=== PATIENT | female | born 1950 | race Two or more races ===

== ENCOUNTER → 2016-09-21 | Outpatient (CLI) | payer MEDICARE ==
[~2016-09-21] MED LIST: CEFD300C2 PO
[2016-09-21 09:27] LABS: Basophils # (auto) 0 uL; Basophils % (auto) 0.7 % (0.0-2.0); Eosinophils # (auto) 0.1 uL; Eosinophils % (auto) 2.4 % (0.0-7.0); Hematocrit 47.3 % (36.0-46.0); Hemoglobin 15.5 g/dL (12.2-16.2); Lymphocytes # (auto) 1.8 uL; Lymphocytes % (auto) 33.1 % (10.0-50.0); Mean Corpuscular Hgb Conc. 32.7 g/dL (32.0-36.0); Mean Corpuscular Volume 85.5 fL (80.0-100.0); Mean Platelet Volume 8.9 fL (7.4-10.4); Monocytes # (auto) 0.3 uL; Monocytes % (auto) 4.9 % (0.0-12.0); Neutrophils # (auto) 3.3 uL; Neutrophils % (auto) 58.9 % (37.0-80.0); Platelet Count (auto) 297 10^3/uL (140-450); Red Cell Distribution Width 14.9 % (11.6-16.0); White Blood Cell 5.6 10^3/uL (4.4-10.8)
[2016-09-21 09:30] LABS: Urine Bilirubin Negative (Negative); Urine Blood Negative /uL (Negative); Urine Color Yellow (Yellow); Urine Glucose Normal (Normal); Urine Ketone Negative (Negative); Urine Mucus FEW (None Seen); Urine Nitrite Negative (Negative); Urine RBC <1 /hpf (0 - 4); Urine Squamous Epithelial Cell FEW /hpf (<5); Urine Urobilinogen Normal (Negative); Urine pH 5.5 (5.0-8.0)
[2016-09-21 10:06] LABS: Albumin 3.8 g/dL (3.4-5.0); BUN/Creatinine Ratio 13.9; Bilirubin, Total 0.3 mg/dL (0.2-1.0); Calcium 9.1 mg/dL (8.5-10.1); Potassium 3.9 mmol/L (3.5-5.1); Total Protein 9.1 g/dL (6.4-8.2)
== END | disposition home or self-care (01) ==
LOC: LAB 08:00
PROVIDERS: ATTEND Internal Medicine
DX: Z00.00 Encounter for general adult medical examination without abnormal findings (principal); I10 Essential (primary) hypertension; E78.2 Mixed hyperlipidemia; E55.9 Vitamin D deficiency, unspecified; Z20.2 Contact with and (suspected) exposure to infections with a predominantly sexual mode of transmission
CPT/HCPCS: 36415; 80053; 80061; 81001; 82306; 84439; 84443; 85025; 86704; 86706; 86708; 86803; 87340

== ENCOUNTER → 2017-08-31 | Outpatient (CLI) | payer OTHER ==
[2017-08-31 09:40] LABS: Basophils # (auto) 0.1 uL; Eosinophils # (auto) 0.1 uL; Eosinophils % (auto) 1.6 % (0.0-7.0); Hematocrit 45.5 % (36.0-46.0); Hemoglobin 15.6 g/dL (12.2-16.2); Lymphocytes # (auto) 1.9 uL; Mean Corpuscular Hemoglobin 30.5 pg (28.0-32.0); Mean Corpuscular Hgb Conc. 34.2 g/dL (32.0-36.0); Mean Corpuscular Volume 89.2 fL (80.0-100.0); Monocytes # (auto) 0.3 uL; Neutrophils # (auto) 3.4 uL; Neutrophils % (auto) 58.4 % (37.0-80.0); Nucleated Red Blood Cells % 0.2 %; Platelet Count (auto) 293 10^3/uL (140-450); Red Cell Distribution Width 13.4 % (11.8-14.3); White Blood Cell 5.8 10^3/uL (4.4-10.8)
[2017-08-31 10:37] LABS: Albumin 4.1 g/dL (3.4-5.0); BUN/Creatinine Ratio 11.7; Bilirubin, Total 0.6 mg/dL (0.2-1.0); Potassium 3.6 mmol/L (3.5-5.1); Total Protein 8.7 g/dL (6.4-8.2)
== END | disposition home or self-care (01) ==
LOC: LAB 09:06
PROVIDERS: ATTEND Physician Assistant
DX: I10 Essential (primary) hypertension (principal); K76.0 Fatty (change of) liver, not elsewhere classified; E78.5 Hyperlipidemia, unspecified; R53.83 Other fatigue; R79.89 Other specified abnormal findings of blood chemistry; R55 Syncope and collapse; Z83.3 Family history of diabetes mellitus
CPT/HCPCS: 36415; 80053; 80061; 83036; 84443; 85025

== ENCOUNTER 2019-01-22 08:10 | Day surgery (SDC) | payer OTHER ==
[2019-01-18 08:55] LABS: Basophils # (auto) 0.1 uL; Basophils % (auto) 1.3 % (0.0-2.0); Eosinophils # (auto) 0.1 uL; Eosinophils % (auto) 2.3 % (0.0-7.0); Hematocrit 47.2 % (36.0-46.0); Hemoglobin 15.7 g/dL (12.2-16.2); Lymphocytes # (auto) 1.8 uL; Lymphocytes % (auto) 31.4 % (10.0-50.0); Mean Corpuscular Hemoglobin 29.4 pg (28.0-32.0); Mean Corpuscular Hgb Conc. 33.2 g/dL (32.0-36.0); Mean Corpuscular Volume 88.6 fL (80.0-100.0); Monocytes # (auto) 0.4 uL; Monocytes % (auto) 7.7 % (0.0-12.0); Neutrophils # (auto) 3.3 uL; Neutrophils % (auto) 57.3 % (37.0-80.0); Nucleated Red Blood Cells % 0.1 %; Platelet Count (auto) 298 10^3/uL (140-450); Red Blood Cells 5.33 10^6/uL (4.0-5.20); Red Cell Distribution Width 13.4 % (11.8-14.3); White Blood Cell 5.8 10^3/uL (4.4-10.8)
[2019-01-18 09:18] LABS: INR 0.98 (0.9-1.15); Partial Thromboplastin Time 24.4 sec (23.64-32.05)
[~2019-01-22] VITALS: Ht 157.5 cm; Wt 70.3 kg
[2019-01-22] MEDS ORDERED: NALOXONE HCL 0.4 MG/ML VIAL ONE (08:15)
[2019-01-22] MEDS ORDERED: SODIUM CHLORIDE LOCK 10 ML ONE (08:15)
[2019-01-22] MEDS ORDERED: MIDAZOLAM HCL 5 MG/ML-1ML VIAL ONE (08:15)
[2019-01-22] MEDS ORDERED: FLUMAZENIL 0.1 MG/ML INJ 10ML MDV IV ONE (08:15)
[2019-01-22] MEDS ORDERED: fentaNYL CITRATE 100 MCG/2 ML VL ONE (08:16)
[2019-01-22] MEDS ORDERED: diphenhdrAMINE HCL 50 MG/1 ML VL ONE (08:16)
[2019-01-22 10:06] VITALS: BP 151/87
== END 2019-01-22 10:14 | disposition home or self-care (01) ==
LOC: GI 08:10
PROVIDERS: ATTEND Internal Medicine Gastroenterology
DX: Z12.11 Encounter for screening for malignant neoplasm of colon (principal); K63.5 Polyp of colon; K57.30 Diverticulosis of large intestine without perforation or abscess without bleeding; M19.90 Unspecified osteoarthritis, unspecified site; I10 Essential (primary) hypertension; G43.909 Migraine, unspecified, not intractable, without status migrainosus; J45.909 Unspecified asthma, uncomplicated; Z98.890 Other specified postprocedural states; Z80.9 Family history of malignant neoplasm, unspecified; Z80.6 Family history of leukemia; Z79.82 Long term (current) use of aspirin; Z79.899 Other long term (current) drug therapy
CPT/HCPCS: 36415; 45385; 85025; 85610; 85730; J1200; J2250; J3010; J7030; 99152; 99153

== ENCOUNTER → 2019-02-07 | Outpatient (CLI) | payer OTHER ==
[2019-02-07 09:51] LABS: Basophils # (auto) 0.1 uL; Basophils % (auto) 0.9 % (0.0-2.0); Eosinophils # (auto) 0.2 uL; Eosinophils % (auto) 2.8 % (0.0-7.0); Hematocrit 45.6 % (36.0-46.0); Hemoglobin 15.5 g/dL (12.2-16.2); Lymphocytes # (auto) 1.9 uL; Lymphocytes % (auto) 33.1 % (10.0-50.0); Mean Corpuscular Hemoglobin 30.3 pg (28.0-32.0); Mean Corpuscular Volume 89.3 fL (80.0-100.0); Monocytes # (auto) 0.4 uL; Neutrophils # (auto) 3.4 uL; Neutrophils % (auto) 57.2 % (37.0-80.0); Platelet Count (auto) 311 10^3/uL (140-450); Red Blood Cells 5.11 10^6/uL (4.0-5.20); Red Cell Distribution Width 13.4 % (11.8-14.3); White Blood Cell 5.9 10^3/uL (4.4-10.8)
[2019-02-07 10:07] LABS: Urine Bacteria NONE SEEN /hpf (None Seen); Urine Blood Negative /uL (Negative); Urine Mucus FEW (None Seen); Urine Specific Gravity 1.021 (1.001-1.035); Urine WBC 6 /hpf (0 - 5)
[2019-02-07 10:27] LABS: Calcium 9.5 mg/dL (8.5-10.1); Potassium 3.7 mmol/L (3.5-5.1)
[2019-02-07 10:33] LABS: BUN/Creatinine Ratio 13.2; Bilirubin, Total 0.7 mg/dL (0.2-1.0); Total Protein 8.7 g/dL (6.4-8.2)
== END | disposition home or self-care (01) ==
LOC: LAB 09:20
PROVIDERS: ATTEND Physician Assistant
DX: Z00.00 Encounter for general adult medical examination without abnormal findings (principal); E78.5 Hyperlipidemia, unspecified; I11.0 Hypertensive heart disease with heart failure; I50.32 Chronic diastolic (congestive) heart failure; R73.03 Prediabetes; R79.89 Other specified abnormal findings of blood chemistry
CPT/HCPCS: 36415; 80053; 80061; 81001; 83036; 85025

== ENCOUNTER → 2019-06-22 | Outpatient (CLI) | payer OTHER | END | disposition home or self-care (01) | LOC: XYW 08:47 | PROVIDERS: ATTEND Internal Medicine | DX: I51.7 Cardiomegaly (principal); I51.89 Other ill-defined heart diseases | CPT/HCPCS: 93306 ==

== ENCOUNTER → 2019-06-22 | Outpatient (CLI) | payer OTHER ==
[2019-06-22 10:50] LABS: Potassium 3.9 mmol/L (3.5-5.1)
[2019-06-22 10:59] LABS: BUN/Creatinine Ratio 12.1; Calcium 8.9 mg/dL (8.5-10.1)
== END | disposition home or self-care (01) ==
LOC: LAB 08:33
PROVIDERS: ATTEND Internal Medicine
DX: I11.0 Hypertensive heart disease with heart failure (principal); I50.9 Heart failure, unspecified; I51.89 Other ill-defined heart diseases
CPT/HCPCS: 36415; 80048; 83880

== ENCOUNTER 2019-11-21 22:55 | Emergency (ER) | payer OTHER ==
[~2019-11-21] VITALS: Ht 157.5 cm; Wt 71.7 kg
[2019-11-21 23:49] LABS: Basophils # (auto) 0.1 10 ^3/uL (0-0.2); Basophils % (auto) 1.2 % (0.0-2.0); Eosinophils # (auto) 0.3 10 ^3/uL (0-0.8); Eosinophils % (auto) 3.8 % (0.0-7.0); Hematocrit 42.8 % (36.0-46.0); Hemoglobin 14.4 g/dL (12.2-16.2); Lymphocytes # (auto) 2.4 10 ^3/uL (0.4-5.4); Lymphocytes % (auto) 33.3 % (10.0-50.0); Mean Corpuscular Hemoglobin 29.8 pg (28.0-32.0); Mean Corpuscular Hgb Conc. 33.6 g/dL (32.0-36.0); Mean Corpuscular Volume 88.6 fL (80.0-100.0); Monocytes # (auto) 0.5 10 ^3/uL (0-1.3); Monocytes % (auto) 7.4 % (0.0-12.0); Neutrophils # (auto) 3.9 10 ^3/uL (1.6-8.6); Neutrophils % (auto) 54.3 % (37.0-80.0); Nucleated Red Blood Cells % 0.1 %; Platelet Count (auto) 285 10^3/uL (140-450); Red Blood Cells 4.83 10^6/uL (4.0-5.20); Red Cell Distribution Width 13.1 % (11.8-14.3); White Blood Cell 7.2 10^3/uL (4.4-10.8)
[2019-11-22 00:05] LABS: Potassium 3.8 mmol/L (3.5-5.1)
[2019-11-22 00:06] LABS: Albumin 3.8 g/dL (3.4-5.0); BUN/Creatinine Ratio 16.2; Calcium 8.7 mg/dL (8.5-10.1); INR 1.04 (0.9-1.15); Partial Thromboplastin Time 24.2 sec (23.64-32.05)
[2019-11-22 00:16] LABS: Bilirubin, Total 0.3 mg/dL (0.2-1.0); Total Protein 8.3 g/dL (6.4-8.2)
[2019-11-22 08:05] LABS: Urine Bacteria FEW /hpf (None Seen); Urine Blood Negative /uL (Negative); Urine Mucus FEW (None Seen); Urine Specific Gravity 1.015 (1.001-1.035); Urine WBC 9 /hpf (0 - 5)
[2019-11-22 08:39] VITALS: BP 137/74
== END 2019-11-22 08:45 | disposition home or self-care (01) ==
LOC: ER 22:58
DX: R42 Dizziness and giddiness (principal); N39.0 Urinary tract infection, site not specified; R73.9 Hyperglycemia, unspecified; J45.909 Unspecified asthma, uncomplicated; I10 Essential (primary) hypertension; G43.909 Migraine, unspecified, not intractable, without status migrainosus; E78.5 Hyperlipidemia, unspecified; Z98.51 Tubal ligation status
CPT/HCPCS: 36415; 70450; 80053; 81001; 85025; 85610; 85730

== ENCOUNTER 2024-02-13 10:34 | Emergency (ER) | payer MEDICARE, OTHER ==
[~2024-02-13] VITALS: Ht 157.5 cm; Wt 65.0 kg
[2024-02-13 11:04] VITALS: BP 187/102; PULSE 87; RESP 16; O2SAT 95
== END 2024-02-13 13:05 | disposition left against medical advice (07) ==
LOC: ER 10:34
DX: S09.90XA Unspecified injury of head, initial encounter (principal); Z53.21 Procedure and treatment not carried out due to patient leaving prior to being seen by health care provider; W18.39XA Other fall on same level, initial encounter; Y93.89 Activity, other specified; Y92.89 Other specified places as the place of occurrence of the external cause; Y99.8 Other external cause status

== ENCOUNTER → 2024-02-13 | Outpatient (CLI) | payer OTHER ==
[2024-02-13 12:23] LABS: Basophils # (auto) 0.1 10 ^3/uL (0-0.2); Basophils % (auto) 1.2 % (0.0-2.0); Eosinophils # (auto) 0.1 10 ^3/uL (0-0.8); Eosinophils % (auto) 1.8 % (0.0-7.0); Hematocrit 41.6 % (36.0-46.0); Hemoglobin 14.3 g/dL (12.2-16.2); Lymphocytes # (auto) 2.4 10 ^3/uL (0.4-5.4); Mean Corpuscular Hemoglobin 29.9 pg (28.0-32.0); Mean Corpuscular Hgb Conc. 34.4 g/dL (32.0-36.0); Mean Corpuscular Volume 86.9 fL (80.0-100.0); Monocytes # (auto) 0.5 10 ^3/uL (0-1.3); Monocytes % (auto) 7.7 % (0.0-12.0); Neutrophils # (auto) 3.5 10 ^3/uL (1.6-8.6); Neutrophils % (auto) 53.3 % (37.0-80.0); Nucleated Red Blood Cells % 0.1 %; Platelet Count (auto) 291 10^3/uL (140-450); Red Blood Cells 4.79 10^6/uL (4.0-5.20); Red Cell Distribution Width 13.9 % (11.8-14.3); White Blood Cell 6.6 10^3/uL (4.4-10.8)
[2024-02-13 12:33] LABS: Urine Bacteria FEW /hpf (None Seen); Urine Blood 1+ /uL (Negative); Urine Clarity Clear (Clear); Urine Color Light-Yellow (Yellow); Urine Protein, UAD Negative (Negative); Urine Specific Gravity 1.008 (1.001-1.035); Urine Urobilinogen Normal (Negative); Urine WBC 9 /hpf (0 - 5); Urine pH 5.5 (5.0-9.0)
[2024-02-13 13:00] LABS: Alanine Aminotransferase 31 U/L (7-40); Albumin 4.4 g/dL (3.2-4.8); Alkaline Phosphatase 75 U/L (46-116); Anion Gap 5 (5-15); Aspartate Aminotransferase 24 U/L (13-40); BUN/Creatinine Ratio 8.6 (10.0-20.0); Blood Urea Nitrogen 7 mg/dL (9-23); Carbon Dioxide 27 mmol/L (20-30); Chloride 107 mmol/L (98-107); Glucose 148 mg/dL (74-106); Potassium 3.9 mmol/L (3.5-5.1); Sodium 139 mmol/L (136-145)
[2024-02-13 13:01] LABS: Bilirubin, Total 0.7 mg/dL (0.2-1.0); Total Protein 7.8 g/dL (5.7-8.2)
[2024-02-13 14:06] LABS: Triglycerides 183 mg/dL (< 150)
[2024-02-13 14:07] LABS: LDL Cholesterol 134 mg/dL (< 100)
[2024-02-13 14:08] LABS: Cholesterol 199 mg/dL (< 200); HDL Cholesterol 38 mg/dL (40-59)
[2024-02-13 14:09] LABS: Creatinine, Urine 50.07 mg/dL (30.0-125.0)
== END | disposition home or self-care (01) ==
LOC: LAB 11:36
PROVIDERS: ATTEND Internal Medicine
DX: I12.9 Hypertensive chronic kidney disease with stage 1 through stage 4 chronic kidney disease, or unspecified chronic kidney disease (principal); E11.22 Type 2 diabetes mellitus with diabetic chronic kidney disease; N18.9 Chronic kidney disease, unspecified; E11.69 Type 2 diabetes mellitus with other specified complication
CPT/HCPCS: 36415; 80053; 80061; 81001; 82043; 82570; 84439; 84443; 85025

== ENCOUNTER → 2024-04-30 | Outpatient (CLI) | payer OTHER ==
[2024-04-30 08:25] LABS: Urine Bacteria None Seen /hpf (None Seen)
[2024-04-30 09:10] LABS: Potassium 4.3 mmol/L (3.5-5.1); Sodium 142 mmol/L (136-145)
[2024-04-30 09:11] LABS: Anion Gap 7 (5-15); Carbon Dioxide 28 mmol/L (20-31)
[2024-04-30 09:12] LABS: Urine Blood 3+ /uL (Negative); Urine Clarity Clear (Clear); Urine Color Light-Yellow (Yellow); Urine Mucus FEW (None Seen); Urine Protein, UAD TRACE (Negative); Urine Specific Gravity 1.022 (1.001-1.035); Urine Urobilinogen Normal (Negative); Urine WBC 8 /hpf (0 - 5)
[2024-04-30 09:17] LABS: Blood Urea Nitrogen 9 mg/dL (9-23)
[2024-04-30 09:19] LABS: Chloride 107 mmol/L (98-107); Glucose 168 mg/dL (74-106)
== END | disposition home or self-care (01) ==
LOC: LAB 08:14
PROVIDERS: ATTEND Internal Medicine
DX: I12.9 Hypertensive chronic kidney disease with stage 1 through stage 4 chronic kidney disease, or unspecified chronic kidney disease (principal); E11.22 Type 2 diabetes mellitus with diabetic chronic kidney disease; N18.2 Chronic kidney disease, stage 2 (mild); E11.69 Type 2 diabetes mellitus with other specified complication; E78.5 Hyperlipidemia, unspecified
CPT/HCPCS: 36415; 80048; 81001

== ENCOUNTER → 2024-08-23 | Outpatient (CLI) | payer OTHER ==
[2024-08-23 08:24] LABS: Urine Bacteria None Seen /hpf (None Seen)
[2024-08-23 08:36] LABS: Basophils # (auto) 0 10 ^3/uL (0-0.2); Basophils % (auto) 0.8 % (0.0-2.0); Eosinophils # (auto) 0.2 10 ^3/uL (0-0.8); Eosinophils % (auto) 2.7 % (0.0-7.0); Hematocrit 42.4 % (36.0-46.0); Lymphocytes # (auto) 2.2 10 ^3/uL (0.4-5.4); Mean Corpuscular Hemoglobin 31.3 pg (28.0-32.0); Mean Corpuscular Hgb Conc. 35.3 g/dL (32.0-36.0); Mean Corpuscular Volume 88.6 fL (80.0-100.0); Monocytes # (auto) 0.4 10 ^3/uL (0-1.3); Monocytes % (auto) 6.2 % (0.0-12.0); Neutrophils # (auto) 3.1 10 ^3/uL (1.6-8.6); Neutrophils % (auto) 52.3 % (37.0-80.0); Platelet Count (auto) 301 10^3/uL (140-450); Red Blood Cells 4.79 10^6/uL (4.0-5.20); Red Cell Distribution Width 13.2 % (11.8-14.3); White Blood Cell 5.9 10^3/uL (4.4-10.8)
[2024-08-23 09:09] LABS: Alanine Aminotransferase 30 U/L (7-40); Albumin 4.7 g/dL (3.2-4.8); Alkaline Phosphatase 71 U/L (46-116); Anion Gap 10 (5-15); BUN/Creatinine Ratio 12.1 (10.0-20.0); Blood Urea Nitrogen 11 mg/dL (9-23); Calcium 9.9 mg/dL (8.7-10.4); Carbon Dioxide 28 mmol/L (20-31); Chloride 105 mmol/L (98-107); HDL Cholesterol 42 mg/dL (40-59); Potassium 3.8 mmol/L (3.5-5.1); Sodium 143 mmol/L (136-145); Total Protein 8.2 g/dL (5.7-8.2); Triglycerides 149 mg/dL (< 150)
[2024-08-23 09:10] LABS: Bilirubin, Total 0.6 mg/dL (0.2-1.0)
[2024-08-23 09:14] LABS: Urine Blood 1+ /uL (Negative); Urine Clarity Clear (Clear); Urine Color Light-Yellow (Yellow); Urine Protein, UAD Negative (Negative); Urine Specific Gravity 1.013 (1.001-1.035); Urine Squamous Epithelial Cell FEW /hpf (<5); Urine Urobilinogen Normal (Negative); Urine WBC 5 /HPF (0-5)
[2024-08-23 09:41] LABS: Aspartate Aminotransferase 12 U/L (13-40); Cholesterol 229 mg/dL (< 200); Glucose 149 mg/dL (74-106); LDL Cholesterol 162 mg/dL (< 100)
[2024-08-23 09:48] LABS: Creatinine, Urine 93.23 mg/dL (30.0-125.0)
== END | disposition home or self-care (01) ==
LOC: LAB 08:08
PROVIDERS: ATTEND Internal Medicine
DX: I12.9 Hypertensive chronic kidney disease with stage 1 through stage 4 chronic kidney disease, or unspecified chronic kidney disease (principal); E11.22 Type 2 diabetes mellitus with diabetic chronic kidney disease; N18.2 Chronic kidney disease, stage 2 (mild); E11.69 Type 2 diabetes mellitus with other specified complication; E78.2 Mixed hyperlipidemia; R82.90 Unspecified abnormal findings in urine
CPT/HCPCS: 36415; 80053; 80061; 81001; 82043; 82570; 83036; 84439; 84443; 85025

== ENCOUNTER 2025-01-29 10:16 | Emergency (ER) | payer OTHER ==
[~2025-01-29] VITALS: Ht 157.5 cm; Wt 61.9 kg
--- NOTE | 2025-01-29 10:38 | ED.PDOC ---
Musculoskeletal HPI Comments This is a 74 year old female presenting to the ED with chief complaint of left arm pain. Patient reports that she has been experiencing left arm pain that radiates to her neck with associated nausea and diarrhea for the past 45 minutes after waking up this morning. Patient relays that her BP was taken at home and came back at 200/110. Patient states she is not on any HTN medication. Patient denies any SOB, dizziness, chest pain, N/V, headache, or syncope. Chief Complaint: High Blood Pressure Time Seen by MD: 10:34 Primary Care Provider: Chinedu Reviewed Notes: Nurses Notes, Medications, Allergies Allergies: Coded Allergies: NO KNOWN ALLERGIES (Unverified , 01/18/19) Home Meds No Active Prescriptions or Reported Meds Information Source: Patient Mode of Arrival: Ambulatory Location: Left Extremity Location: Arm, Other (Neck pain) Timing: Minutes Prehospital treatment: None Severity: Moderate Able to Move Extremity: Yes Bear Weight: Fully Pain: Moderate Mechanism: Spontaneous Circumstances: Spontaneous Onset of Symptoms: Spontaneous Symptoms: Pain DVT Risk Factors: NONE Past Medical History PAST MEDICAL HISTORY: Asthma, High Lipids, HTN, PE Surgical History: Tonsillectomy, Tubal Ligation PROPAGATOR History: No Pertinent PROPAGATOR History Family History Family History: No family hx of Cancer, No family hx of Heart idalmis, No family hx of Lung idalmis Social History Smoker: Non-Smoker Alcohol: Rarely Drugs: Denies Drug Use Lives In: Home Constitutional: denies: chills, diaphoresis, fatigue, fever, malaise, sweats, weakness, others EENTM: denies: blurred vision, double vision, ear bleeding, ear discharge, ear drainage, ear pain, ear ringing, eye pain, eye redness, hearing loss, mouth pain, mouth swelling, nasal discharge, nose bleeding, nose congestion, nose pain, photophobia, tearing, throat pain, throat swelling, voice changes, others Respiratory: denies: cough, hemoptysis, orthopnea, SOB at rest, shortness of breath, SOB with excertion, stridor, wheezing, others Cardiovascular: reports: left arm pain; denies: chest pain, dizzy spells, diaphoresis, Dyspnea on exertion, edema, irregular heart beat, lightheadedness, palpitations, PND, syncope, others Gastrointestinal: reports: diarrhea, nausea; denies: abdomen distended, abdominal pain, blood streaked bowels, constipated, dysphagia, difficulty swallowing, hematemesis, melena, poor appetite, poor fluid intake, rectal bleed ing, rectal pain, vomiting, others Genitourinary: denies: abnormal vagina bleeding, burning, dyspareunia, dysuria, flank pain, frequency, hematuria, incontinence, pain, , vagina discharge, urgency, others Neurological: denies: dizziness, fainting, headache, left sided numbness, left sided weakness, numbness, paresthesia, pre-existing deficit, right sided numbness, right sided weakness, seizure, speech problems, tingling, tremors, weakness, others Musculoskeletal: reports: neck pain; denies: back pain, gout, joint pain, joint swelling, muscle pain, muscle stiffness, others Integumetry: denies: bruises, change in color, change in hair/nails, dryness, laceration, lesions, lumps, rash, wounds, others Allergic/Immunocompromised: denies: Difficulty Healing, Frequent Infections, Hives, Itching, others Hematologic/Lymphatic: denies: anemia, blood clots, easy bleeding, easy bruising, swollen glands, others Endocrine: denies: excessive hunger, excessive sweating, excessive thirst, excessive urination, flushing, intolerance to cold, intolerance to heat, unexplained weight gain, unexplained weight loss, others Psychiatric: denies: anxiety, bipolar disorder, depression, hopeless, panic disorder, schizophrenia, sleepless, suicidal, others All Other Systems: Reviewed and Negative Physical Exam General Appearance: No Apparent Distress HEENT: Normal ENT Inspection, Pharynx Normal, TMs Normal Neck: Full Range of Motion, Non-Tender, Normal, Normal Inspection Respiratory: Chest Non-Tender, Lungs Clear, No Accessory Muscle Use, No Respiratory Distress, Normal Breath Sounds Cardiovascular: No Edema, No JVD, No Murmur, No Gallop, Normal Peripheral Pulses, Regular Rate/Rhythm Breast Exam: Deferred Gastrointestinal: No Organomegaly, Non Tender, No Pulsatile Mass, Normal Bowel Sounds, Soft Genitalia: Deferred Pelvic: Deferred Rectal: Deferred Extremities: No calf tenderness, Normal capillary refill, Normal inspection, Normal range of motion, Non-tender, No pedal edema Musculoskeletal : Location: Left Extremity Location: Shoulder Apperance: Limited ROM, Tenderness: Mild Neurologic: Alert, slitter and cutter operator II-XII nml as Tested, No Motor Deficits, Normal Affect, Normal Mood, No Sensory Deficits Cerebellar Function: Normal Reflexes: Normal Skin: Dry, Normal Color, Warm Lymphatic: No Adenopathy Was a procedure done? Was a procedure done?: No EKG EKG : Pulse Rate (adult): 93 [place]: Normal Cardiac Rhythm: NSR Block: RBBB Hypertrophy: LVH ST: Normal Differential Diagnosis EXT Differential Diagnosis: DJD, Contusion, Strain, Arthritis, Bursitis X-Ray, Labs, Meds, VS Vital Signs Date Time Temp Pulse Resp B/P (MAP) Pulse Ox O2 Delivery O2 Flow Rate FiO2 01/29/25 13:00 98 18 166/87 (113) 97 01/29/25 10:38 93 01/29/25 10:34 93 01/29/25 10:18 97.8 101 18 185/102 100 97.8 Lab Test 01/29/25 12:15 01/29/25 11:17 Range/Units Troponin I High Sensitivity 8 7 </=34 ng/L White Blood Count 6.1 4.4-10.8 10^3/uL Red Blood Count 5.17 4.0-5.20 10^6/uL Hemoglobin 15.3 12.2-16.2 g/dL Hematocrit 44.8 36.0-46.0 % Mean Corpuscular Volume 86.6 80.0-100.0 fL Mean Corpuscular Hemoglobin 29.5 28.0-32.0 pg Mean Corpuscular Hemoglobin Concent 34.1 32.0-36.0 g/dL Red Cell Distribution Width 13.0 11.8-14.3 % Platelet Count 333 140-450 10^3/uL Mean Platelet Volume 8.0 6.9-10.8 fL Neutrophils (%) (Auto) 63.7 37.0-80.0 % Lymphocytes (%) (Auto) 27.8 10.0-50.0 % Monocytes (%) (Auto) 6.4 0.0-12.0 % Eosinophils (%) (Auto) 1.3 0.0-7.0 % Basophils (%) (Auto) 0.8 0.0-2.0 % Neutrophils # (Auto) 3.9 1.6-8.6 10 ^3/uL Lymphocytes # (Auto) 1.7 0.4-5.4 10 ^3/uL Monocytes # (Auto) 0.4 0-1.3 10 ^3/uL Eosinophils # (Auto) 0.1 0-0.8 10 ^3/uL Basophils # (Auto) 0 0-0.2 10 ^3/uL Nucleated Red Blood Cells 0.0 % Sodium Level 143 136-145 mmol/L Potassium Level 4.4 3.5-5.1 mmol/L Chloride Level 105 98-107 mmol/L Carbon Dioxide Level 29 20-31 mmol/L Anion Gap 9 5-15 Blood Urea Nitrogen 14 9-23 mg/dL Creatinine 0.92 0.550-1.02 mg/dL Glomerular Filtration Rate Calc 65 >90 mL/min BUN/Creatinine Ratio 15.2 10.0-20.0 Serum Glucose 142 H 74-106 mg/dL Calcium Level 9.4 8.7-10.4 mg/dL Lt Shoulder XR indicates: Mild degenerative changes of the left shoulder without evidence of fracture. The patient's CBC and chemistry panel are within normal limits The patient's troponin level x2 is negative At this time, the patient is being discharged and will follow up with the primary care doctor The patient will return to the emergency department's condition worsens. The patient was given tramadol here in the emergency department's for the pain Images Reviewed?: Images reviewed and evaluated by me Time of 1ST Reevaluation: 13:50 Reevaluation 1ST: Improved Patient Education/Counseling: Diagnosis, Treatment, Prognosis, Need For Follow Up Family Education/Counseling: Diagnosis, Treatment, Prognosis, Need For Follow Up Departure 1 Departure Time of Disposition: 13:49 Impression: Primary Impression: Hypertensive urgency Additional Impressions: Shoulder pain Qualified Codes: M25.512 - Pain in left shoulder Arthritis Disposition: 01 HOME / SELF CARE / HOMELESS Condition: Fair e-Prescriptions No Active Prescriptions or Reported Meds Discharged With: Self Critical Care Note Critical Care Time?: No Stability Stability form required: No Heart Score Heart Score: Heart Score Response (Comments) Value History Highly Suspicious 2 EKG Normal 0 Age >65 2 Risk Factors 1 or 2 risk factors 1 Troponin Normal limit 0 Total 5 I personally scribed for KOURTNEY RUCKER MD ([email or web address]) on 01/29/25 at 10:38. Electronically submitted by Anmol Moreno ([email or web address]). I personally scribed for KOURTNEY RUCKER MD ([email or web address]) on 01/29/25 at 11:46. Electronically submitted by Anmol Moreno ([email or web address]). KOURTNEY RUCKER MD Jan 29, 2025 10:38
--- NOTE | 2025-01-29 11:09 | DVH ---
EXAM: XY L SHOULDER 2+ VIEW XRAY HISTORY: pain COMPARISON: None TECHNIQUE: 3 views of the left shoulder were performed. FINDINGS: No acute fracture or dislocation are identified about the left shoulder. There is mild acromioclavic ular hypertrophy without significant loss of subacromial space. There is mild glenohumeral osteoarthr itis with small marginal osteophytes inferiorly. IMPRESSION: Mild degenerative changes of the left shoulder without evidence of fracture.
[2025-01-29 11:51] LABS: Hematocrit 44.8 % (36.0-46.0); Hemoglobin 15.3 g/dL (12.2-16.2); Mean Corpuscular Hemoglobin 29.5 pg (28.0-32.0); Mean Corpuscular Volume 86.6 fL (80.0-100.0); Nucleated Red Blood Cells % 0.0 %
[2025-01-29 12:02] LABS: Chloride 105 mmol/L (98-107); Potassium 4.4 mmol/L (3.5-5.1); Sodium 143 mmol/L (136-145)
[2025-01-29 12:03] LABS: Anion Gap 9 (5-15); Carbon Dioxide 29 mmol/L (20-31)
[2025-01-29 12:04] LABS: Calcium 9.4 mg/dL (8.7-10.4)
[2025-01-29 12:09] LABS: BUN/Creatinine Ratio 15.2 (10.0-20.0); Blood Urea Nitrogen 14 mg/dL (9-23); Glucose 142 mg/dL (74-106)
[2025-01-29 13:56] VITALS: BP 151/87; PULSE 88; RESP 16; TEMP 98.7; O2SAT 96
[2025-01-29] MEDS ORDERED: LISI20TA56 PO (13:56)
== END 2025-01-29 14:11 | disposition home or self-care (01) ==
LOC: ER 10:16
DX: R20.0 Anesthesia of skin (principal); I16.0 Hypertensive urgency; M25.512 Pain in left shoulder; I10 Essential (primary) hypertension; J45.909 Unspecified asthma, uncomplicated; E78.5 Hyperlipidemia, unspecified; M19.90 Unspecified osteoarthritis, unspecified site; Z90.89 Acquired absence of other organs; Z98.51 Tubal ligation status
CPT/HCPCS: 36415; 73030; 80048; 84484; 85025

== ENCOUNTER 2025-03-28 11:18 | Outpatient (CLI) | payer OTHER ==
[~2025-03-28 11:18] MED LIST changes: -CEFD300C2 PO; +LISI20TA56 PO
[2025-03-28 12:46] LABS: Alanine Aminotransferase 33 U/L (7-40); Albumin 4.4 g/dL (3.2-4.8); Alkaline Phosphatase 73 U/L (46-116); Anion Gap 10 (5-15); BUN/Creatinine Ratio 12.2 (10.0-20.0); Bilirubin, Total 0.6 mg/dL (0.2-1.0); Blood Urea Nitrogen 10 mg/dL (9-23); Calcium 9.4 mg/dL (8.7-10.4); Carbon Dioxide 28 mmol/L (20-31); Chloride 105 mmol/L (98-107); Creatine Kinase IFCC 138 U/L (34-145); Potassium 4.0 mmol/L (3.5-5.1); Sodium 143 mmol/L (136-145); Total Protein 8.0 g/dL (5.7-8.2)
[2025-03-28 12:47] LABS: Glucose 132 mg/dL (74-106)
[2025-03-28 12:48] LABS: Free T4 (Free Thyroxine) 1.01 ng/dL (0.89-1.76)
[2025-03-28 12:50] LABS: Free T3 3.02 pg/mL (2.3-4.2)
[2025-03-28 13:00] LABS: HDL Cholesterol 41 mg/dL (40-59); Triglycerides 207 mg/dL (< 150)
[2025-03-28 13:06] LABS: Cholesterol 224 mg/dL (< 200)
== END 2025-03-28 17:00 | disposition home or self-care (01) ==
LOC: LAB 11:18
PROVIDERS: ATTEND Internal Medicine
DX: E11.69 Type 2 diabetes mellitus with other specified complication (principal); E78.5 Hyperlipidemia, unspecified
CPT/HCPCS: 36415; 80053; 80061; 82043; 82550; 83036; 84439; 84443; 84481